=== PATIENT | male | born 1960 | race Hispanic/Latino ===

== ENCOUNTER 2021-07-06 09:51 | Emergency (ER) | payer OTHER ==
[~2021-07-06] VITALS: Ht 167.6 cm; Wt 79.8 kg
[2021-07-06 09:53] VITALS: BP 154/97
[2021-07-06 10:18] LABS: BASOPHILS % (AUTO) 0.1 % (0.0-5.0); EOSINOPHILS % (AUTO) 0.8 % (0.0-8.0); HEMATOCRIT 41.5 % (42-54); LYMPHOCYTES % (AUTO) 12.6 % (21.0-51.0); MEAN CORPUSCULAR HEMOGLOBIN 30.2 pg (27.0-33.0); MEAN CORPUSCULAR HGB CONC 35.9 g/dL (32.0-36.0); MONOCYTES % (AUTO) 4.5 % (3.0-13.0); NEUTROPHILS % (AUTO) 81.7 % (40.0-77.0); PLATELET COUNT (AUTO) 207 K/uL (130-400); RED BLOOD CELL COUNT(AUTO) 4.94 MIL/uL (4.50-6.20); RED CELL DISTRIBUTION WIDTH 12.3 % (11.0-15.5); WHITE BLOOD COUNT (AUTO) 7.6 K/uL (4.8-10.8)
[2021-07-06 10:30] LABS: CREATININE 0.8 mg/dL (0.5-1.5); POTASSIUM 3.9 mmol/L (3.5-5.1)
[2021-07-06 10:35] LABS: ALBUMIN 3.6 g/dL (3.5-5.0); BILIRUBIN,TOTAL 1.5 mg/dL (0.2-1.0); TOTAL PROTEIN, SERUM 7.3 g/dL (6.0-8.3)
[2021-07-06 10:41] VITALS: BP 144/91
[2021-07-06 13:30] VITALS: BP 176/97
[2021-07-06] MEDS ORDERED: ACETAMINOPHEN 500 MG TABLET PO ONE (14:00)
[2021-07-06] MEDS ORDERED: IOHEXOL-350 75 ML VIAL IV ONE (14:17)
[2021-07-06 16:26] VITALS: BP 124/76
[2021-07-06] MEDS ORDERED: DiphenhydrAMINE HCL 50 MG/ML VIAL IM ONE (17:30)
[2021-07-06] MEDS ORDERED: METOCLOPRAMIDE 10 MG/2 ML VIAL IVP ONE (17:30)
[2021-07-06] MEDS ORDERED: SOLU-MEDROL 125MG VIAL IVP ONE (17:30)
[2021-07-06] MEDS ORDERED: 0.9%NACL 1000ML 1,000 ML IV ONE (17:30)
[2021-07-06] MEDS ORDERED: KETOROLAC 30MG VIAL (30MG/ML) IM ONE (17:30)
[2021-07-06 18:33] VITALS: BP 150/86
[2021-07-06 19:34] VITALS: BP 144/82
== END 2021-07-06 19:40 | disposition home or self-care (01) ==
LOC: EDH 09:51
DX: G43.909 Migraine, unspecified, not intractable, without status migrainosus (principal); E11.9 Type 2 diabetes mellitus without complications; I10 Essential (primary) hypertension; Z79.1 Long term (current) use of non-steroidal anti-inflammatories (NSAID)
CPT/HCPCS: 36415; 70450; 70496; 70498; 80053; 85025; 85651; 93005; 96361; 96372 ×2; 96374; 96375; 99285; J1200; J1885; J2765; J2930; J7030; Q9967